=== PATIENT | male | born 1985 | race Asian ===

== ENCOUNTER 2017-11-07 14:40 | Emergency (ER) | payer OTHER ==
[~2017-11-07] VITALS: Ht 182.9 cm; Wt 98.8 kg
[~2017-11-07 14:40] MED LIST: ASPI1TAB35 PO; BISM262S7 PO; NEOMOIN3 TOP; ZINC25CA PO; [UNRECOGNIZED DRUG - CODE] PO
[2017-11-07 14:42] VITALS: Ht 182.9 cm; Wt 98.8 kg
[2017-11-07 16:10] VITALS: BP 135/67; PULSE 114; TEMP 36.6; O2SAT 96
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
== END 2017-11-07 16:11 | disposition home or self-care (01) ==
LOC: C.EDB 14:41 → C.EDD 16:11
DX: Z11.59 Encounter for screening for other viral diseases (principal)